=== PATIENT | male | born 1985 | race Caucasian/White ===

== ENCOUNTER 2018-11-29 11:07 | Emergency (ER) | payer BC ==
[~2018-11-29] VITALS: Ht 172.7 cm; Wt 92.7 kg
[2018-11-29 11:12] VITALS: BP 142/95
--- NOTE | 2018-11-29 12:52 | NUR ---
TEST DESK TROUBLE LOCATOR IN ROOM FOR TEST.
== END 2018-11-29 13:58 | disposition home or self-care (01) ==
LOC: ER 11:08
DX: M79.672 Pain in left foot (principal); R20.2 Paresthesia of skin
CPT/HCPCS: 93971; 99284